=== PATIENT | male | born 1935 | race Caucasian/White ===

== ENCOUNTER 2018-01-21 11:40 | Day surgery (SDC) | payer OTHER ==
[~2018-01-21] VITALS: Ht 177.8 cm; Wt 81.7 kg
[~2018-01-21 11:40] MED LIST: ASPI81CH PO; BP MEDICATION; DIURETIC; GLIM4 PO; HYDACE7.5 PO; HYDCHL25 PO; Hair, Skin & N1 EACH PO; IBUP800 PO; LISI20 PO; META800 PO; METF500 PO; METF500C PO; OXYACE5T PO; PRED20 PO; SIMV10 PO; TRADJENTA5 MG PO; VITAMIN B122500 MC1 PO; [UNRECOGNIZED DRUG - OTHER]
[2018-01-21] MEDS ORDERED: HYDR1TAB94 PO (17:04)
== END 2018-01-21 18:32 | disposition home or self-care (01) ==
LOC: ORSCMMR 11:40 → SURS 11:43 → ORSCMMR 18:32
PROVIDERS: Surgery
PROC: 0YUA4JZ Supplement Bilateral Inguinal Region with Synthetic Substitute, Percutaneous Endoscopic Approach (ICD-10-PCS; principal; 2018-01-21 07:30)
PROC: 8E0W4CZ Robotic Assisted Procedure of Trunk Region, Percutaneous Endoscopic Approach (ICD-10-PCS; principal; 2018-01-21 07:30)
DX: K40.20 Bilateral inguinal hernia, without obstruction or gangrene, not specified as recurrent (principal); J44.9 Chronic obstructive pulmonary disease, unspecified; G47.33 Obstructive sleep apnea (adult) (pediatric); I12.9 Hypertensive chronic kidney disease with stage 1 through stage 4 chronic kidney disease, or unspecified chronic kidney disease; E11.22 Type 2 diabetes mellitus with diabetic chronic kidney disease; N18.9 Chronic kidney disease, unspecified; Z87.891 Personal history of nicotine dependence; Z79.84 Long term (current) use of oral hypoglycemic drugs; Z79.82 Long term (current) use of aspirin; Z79.899 Other long term (current) drug therapy
CPT/HCPCS: 82947; C1781; J0690; J2250; J2370; J2405; J2710; J2765; J3010; J7120

== ENCOUNTER 2018-10-25 06:44 | Day surgery (SDC) | payer OTHER ==
[~2018-10-25] VITALS: Ht 177.8 cm; Wt 77.0 kg
[~2018-10-25 06:44] MED LIST changes: +AMLO5 PO; +FISH OIL 1,001000 MG PO; +HYDR1TAB94 PO; +LIVALO2 MG PO; +REPA1 PO
[2018-10-25] MEDS ORDERED: CLOP75 PO (12:48)
[2018-10-25] MEDS ORDERED: Aspirin EC81 MG PO (12:48)
== END 2018-10-25 15:00 | disposition home or self-care (01) ==
LOC: MHTC 06:44
DX: E11.51 Type 2 diabetes mellitus with diabetic peripheral angiopathy without gangrene (principal); I70.212 Atherosclerosis of native arteries of extremities with intermittent claudication, left leg; I77.1 Stricture of artery
CPT/HCPCS: 36200; 37220; 37226; 37229; 75625; 75710; 75716; 75774; 76937; 82947; 85347; 99152; 99153; C1724; C1725; C1769; C1874; C1887; C1894; C2623; J1644; J2250; J3010; J7030; Q9967

== ENCOUNTER 2018-12-01 09:55 | Day surgery (SDC) | payer OTHER ==
[~2018-12-01] VITALS: Ht 182.9 cm; Wt 80.0 kg
[~2018-12-01 09:55] MED LIST changes: +Aspirin EC81 MG PO; +CLOP75 PO
[2018-12-01 10:56] LABS: BASOPHILS ABSOLUTE AUTO 0.08 K/mm3 (0.00-0.23); BASOPHILS PERCENT AUTO 1 % (0-2); EOSINOPHILS PERCENT AUTO 4 % (0-6); Hematocrit 39.8 % (37.0-53.0); Hemoglobin 13.2 g/dL (13.5-17.5); IMMATURE GRAN ABSOLUTE AUTO 0.04 K/mm3 (0.00-0.10); IMMATURE GRAN PERCENT AUTO 0 % (0-1); LYMPHOCYTES ABSOLUTE AUTO 3.26 K/mm3 (0.84-5.20); LYMPHOCYTES PERCENT AUTO 32 % (21-46); MONOCYTES PERCENT AUTO 6 % (4-13); Mean Corpuscular HGB 29.7 pg (26.0-34.0); Mean Corpuscular HGB Conc 33.2 g/dL (31.5-36.5); Mean Corpuscular Volume 90 fL (80-100); Mean Platelet Volume 8.7 fL (9.1-12.4); NEUTROPHILS PERCENT AUTO 57 % (41-73); Platelet Count 241 K/mm3 (150-400); RDW Standard Deviation 42.8 fL (35.1-46.3); Red Blood Cell Count 4.44 M/mm3 (4.30-5.90); White Blood Cell Count 10.28 K/mm3 (4.00-11.30)
[2018-12-01 11:17] LABS: Anion Gap 6 mmol/L (6-16); Blood Urea Nitrogen 41 mg/dL (8-24); CO2, Blood 26 mmol/L (21-32); Calcium, Blood 9.1 mg/dL (8.5-10.1); Chloride, Blood 106 mmol/L (98-108); Creatinine, Blood 1.17 mg/dL (0.60-1.20); Glomerular Filtration Rate >60 (60-); Glucose, Blood 168 mg/dL (70-99); Potassium, Blood 4.1 mmol/L (3.5-5.5); Sodium, Blood 138 mmol/L (136-145)
[2018-12-01 11:22] LABS: International Normalized Ratio 0.97; Prothrombin Time Results 10.3 Sec (9.7-11.5)
--- NOTE | 2018-12-01 15:00 | NUR ---
PT EATING LUNCH, WITHOUT DIFF. NADN. VSS. L GROIN SITE REMAINS CLEAR. CALL LIGHT WITHIN REACH. FAMILY AT BEDSIDE
--- NOTE | 2018-12-01 16:09 | NUR ---
PT AND FAMILY VERBALIZES UNDERSTANDING WRITTEN AND VERBAL ORDERS. DENIES QUESTIONS. PT IV DC'D. CATH INTACT. PRESSURE DSG APPLIED. PT L GROIN SITE REMAINS STABLE. VSS. NADN. PT SITTING UP IN BED WITHOUT DIFF. CALL LIGHT WITHIN REACH.
--- NOTE | 2018-12-01 16:19 | NUR ---
PT AMBULATES TO RESTROOM AND BACK. PT DRESSES SELF WITH MINIMAL ASSISTANCE. ALEJANDRA. VSS. PT DC TO HOME VIA S/O BY SHEELA.
== END 2018-12-01 16:30 | disposition home or self-care (01) ==
LOC: MHTC 09:55 → ORSCMMR 10:00 → MHTC 16:30
PROVIDERS: Radiology Diagnostic Radiology
DX: E11.51 Type 2 diabetes mellitus with diabetic peripheral angiopathy without gangrene (principal); I70.202 Unspecified atherosclerosis of native arteries of extremities, left leg; I12.9 Hypertensive chronic kidney disease with stage 1 through stage 4 chronic kidney disease, or unspecified chronic kidney disease; E11.22 Type 2 diabetes mellitus with diabetic chronic kidney disease; N18.9 Chronic kidney disease, unspecified; E11.42 Type 2 diabetes mellitus with diabetic polyneuropathy; F41.9 Anxiety disorder, unspecified; F32.9 Major depressive disorder, single episode, unspecified; E78.5 Hyperlipidemia, unspecified; Z88.8 Allergy status to other drugs, medicaments and biological substances; Z79.899 Other long term (current) drug therapy; Z79.84 Long term (current) use of oral hypoglycemic drugs
CPT/HCPCS: 37225; 75625; 80048; 85025; 85610; 99152; 99153; C1714; C1760; C1769; C1884; C1887; C1894; C2623; J1644; J2250; J3010; J7030; Q9967

== ENCOUNTER 2020-05-13 09:58 | Inpatient (IN) | payer OTHER ==
[~2020-05-13] VITALS: Ht 177.8 cm; Wt 80.4 kg
[~2020-05-13 09:58] MED LIST changes: +AMLODIPINE BESYL5 MG PO; +B-121000 MCG PO; +DOCU100 PO; +METAMUCIL PACK3.4 GM PO; +METFORMIN HCL500 M3 PO; +PANTOPRAZOLE SO40 M2 PO; +POLYETHYLENE G500 G1 PO; +SENN187 PO; -VITAMIN B122500 MC1 PO; +XARELTO2.5 M1 PO
[2020-05-13 10:47] LABS: BASOPHILS ABSOLUTE AUTO 0.07 K/mm3 (0.00-0.23); BASOPHILS PERCENT AUTO 0 % (0-2); EOSINOPHILS PERCENT AUTO 0 % (0-6); Hematocrit 39.4 % (37.0-53.0); IMMATURE GRAN ABSOLUTE AUTO 0.33 K/mm3 (0.00-0.10); IMMATURE GRAN PERCENT AUTO 1 % (0-1); LYMPHOCYTES ABSOLUTE AUTO 1.75 K/mm3 (0.84-5.20); LYMPHOCYTES PERCENT AUTO 6 % (21-46); MONOCYTES ABSOLUTE AUTO 1.65 K/mm3 (0.16-1.47); MONOCYTES PERCENT AUTO 6 % (4-13); Mean Corpuscular HGB 28.6 pg (26.0-34.0); Mean Corpuscular Volume 87 fL (80-100); Mean Platelet Volume 9.5 fL (9.1-12.4); NEUTROPHILS ABSOLUTE AUTO 25.12 K/mm3 (1.96-9.15); NEUTROPHILS PERCENT AUTO 87 % (41-73); Platelet Count 253 K/mm3 (150-400); RDW Coefficient Variation 14.5 % (11.7-14.2); RDW Standard Deviation 45.9 fL (35.1-46.3); Red Blood Cell Count 4.54 M/mm3 (4.30-5.90); White Blood Cell Count 28.92 K/mm3 (4.00-11.30)
[2020-05-13 11:02] LABS: Alanine Aminotransfer (ALT/SGP 20 U/L (12-78); Albumin, Blood 3.4 g/dL (3.4-5.0); Albumin/Globulin Ratio 0.7 (0.8-1.8); Alk Phos 61 U/L (50-136); Anion Gap 8 mmol/L (6-16); Aspartate Aminotrans (AST/SGOT 26 U/L (12-37); Bilirubin, Total 1.2 mg/dL (0.1-1.0); Blood Urea Nitrogen 21 mg/dL (8-24); Bun/Creatinine Ratio 21.9 (12.0-20.0); CO2, Blood 25 mmol/L (21-32); Chloride, Blood 97 mmol/L (98-108); Creatinine, Blood 0.96 mg/dL (0.60-1.20); Globulin, Blood 4.8 g/dL (2.2-4.0); Glomerular Filtration Rate >60 (60-); Glucose, Blood 312 mg/dL (70-99); Potassium, Blood 3.8 mmol/L (3.5-5.5); Sodium, Blood 130 mmol/L (136-145); Total Protein, Blood 8.2 g/dL (6.4-8.2)
[2020-05-13 11:08] LABS: International Normalized Ratio 1.1; Prothrombin Time Results 11.7 Sec (9.7-11.5)
[2020-05-13 11:58] LABS: Source, Urine Clean Catch
[2020-05-13 12:02] LABS: Bilirubin, Urine Neg (Neg); Blood, Urine 4+ (Neg); Glucose Qualitative, Urine 4+ (Neg); Ketones, Urine 1+ (Neg); Leukocyte Esterase, Urine 2+ (Neg); Nitrite, Urine Neg (Neg); Protein, Urine 3+ (Neg); Urobilinogen, Urine NORM (Normal)
[2020-05-13 12:14] LABS: Appearance, Urine Hazy (Clear); Color, Urine Yellow (P-Yellow)
[2020-05-13 12:15] LABS: White Blood Cells, Urine 25-50 /hpf (0-5)
[2020-05-13 12:16] LABS: Bacteria Many /hpf; Squamous Epithelial Cells Not Seen /hpf (Few)
[2020-05-13 13:43] LABS: Influenza A, PCR Negative (NEGATIVE); Influenza B, PCR Negative (NEGATIVE); Resp Syncytial Virus, PCR Negative (NEGATIVE); SARS-Cov-2 (COVID-19) PCR, MMC Negative (NEGATIVE)
[2020-05-13] MEDS ORDERED: DOCU100 PO (15:15)
--- NOTE | 2020-05-13 19:25 | NUR ---
SHIFT SUMMARY: ASSUMED CARE OF PATIENT UPON HIS ARRIVAL FROM ED AT 1725. WAS SHIVERING WITH RIGORS, TEMP 100.4; TYLENOL GIVEN AND RIGORS RESOLVED. DENIED PAIN, BUT STATED HE JUST FEELS LOUSY OVERALL. GRANDSON WILL STAY AT BEDSIDE TONIGHT PATIENT REQUIRES ASSISTANCE WITH CARE.
--- NOTE | 2020-05-14 04:53 | NUR ---
SHIFT SUMMARY ADMITTED FOR UTI/SEPSIS. DNI CODE. PT HAS URINATED THIS SHIFT. HE DRANK VERY LITTLE. 5 UNITS OF HUMULIN WERE REQUIRED. GLUCOSE WAS 224, MEDIUM SS. PT IS VERY WEAK AND DID NOT AMBULATE THIS SHIFT. HX: FALLS. HE HAD A FEVER ON PREVIOUS SHIFT, MEDICATED WITH TYLENOL.
[2020-05-14 05:05] LABS: BASOPHILS ABSOLUTE AUTO 0.06 K/mm3 (0.00-0.23); BASOPHILS PERCENT AUTO 0 % (0-2); EOSINOPHILS ABSOLUTE AUTO 0.04 K/mm3 (0.00-0.68); EOSINOPHILS PERCENT AUTO 0 % (0-6); Hematocrit 34.1 % (37.0-53.0); Hemoglobin 11.2 g/dL (13.5-17.5); IMMATURE GRAN ABSOLUTE AUTO 0.24 K/mm3 (0.00-0.10); IMMATURE GRAN PERCENT AUTO 1 % (0-1); LYMPHOCYTES ABSOLUTE AUTO 1.51 K/mm3 (0.84-5.20); LYMPHOCYTES PERCENT AUTO 7 % (21-46); MONOCYTES ABSOLUTE AUTO 1.35 K/mm3 (0.16-1.47); MONOCYTES PERCENT AUTO 6 % (4-13); Mean Corpuscular HGB 28.6 pg (26.0-34.0); Mean Corpuscular HGB Conc 32.8 g/dL (31.5-36.5); Mean Corpuscular Volume 87 fL (80-100); Mean Platelet Volume 9.7 fL (9.1-12.4); NEUTROPHILS ABSOLUTE AUTO 19.68 K/mm3 (1.96-9.15); NEUTROPHILS PERCENT AUTO 86 % (41-73); Platelet Count 184 K/mm3 (150-400); RDW Coefficient Variation 14.6 % (11.7-14.2); RDW Standard Deviation 46.7 fL (35.1-46.3); Red Blood Cell Count 3.92 M/mm3 (4.30-5.90); White Blood Cell Count 22.88 K/mm3 (4.00-11.30)
[2020-05-14 05:44] LABS: Anion Gap 6 mmol/L (6-16); Blood Urea Nitrogen 18 mg/dL (8-24); Bun/Creatinine Ratio 20.3 (12.0-20.0); CO2, Blood 26 mmol/L (21-32); Calcium, Blood 8.2 mg/dL (8.5-10.1); Chloride, Blood 103 mmol/L (98-108); Creatinine, Blood 0.89 mg/dL (0.60-1.20); Glomerular Filtration Rate >60 (60-); Glucose, Blood 143 mg/dL (70-99); Potassium, Blood 3.6 mmol/L (3.5-5.5); Sodium, Blood 135 mmol/L (136-145)
--- NOTE | 2020-05-14 18:42 | NUR ---
SHIFT SUMMARY: T MAX 102.3; TYLENOL GIVEN. MENTATION HAS IMPROVED FROM YESTERDAY, BUT FATIGUES EASILY. STILL HAVING URINARY FREQUENCY, VOIDS ~50-100 EACH VOID. VOIDING OFTEN ENOUGH THAT BLADDER SCAN HAS NOT BEEN REQUIRED. GOT UP TO CHAIR X 1 TODAY. APPETITE GOOD FOR BREAKFAST AND LUNCH, BUT DID NOT EAT MUCH DINNER. AND GRANDSON AT BEDSIDE IN SHIFTS, ARE CAREIVERS.
[2020-05-15 05:46] LABS: BASOPHILS ABSOLUTE AUTO 0.03 K/mm3 (0.00-0.23); BASOPHILS PERCENT AUTO 0 % (0-2); EOSINOPHILS ABSOLUTE AUTO 0.02 K/mm3 (0.00-0.68); EOSINOPHILS PERCENT AUTO 0 % (0-6); Hematocrit 32.2 % (37.0-53.0); Hemoglobin 10.9 g/dL (13.5-17.5); IMMATURE GRAN ABSOLUTE AUTO 0.06 K/mm3 (0.00-0.10); IMMATURE GRAN PERCENT AUTO 1 % (0-1); LYMPHOCYTES ABSOLUTE AUTO 0.64 K/mm3 (0.84-5.20); LYMPHOCYTES PERCENT AUTO 6 % (21-46); MONOCYTES ABSOLUTE AUTO 0.65 K/mm3 (0.16-1.47); MONOCYTES PERCENT AUTO 6 % (4-13); Mean Corpuscular HGB 29.1 pg (26.0-34.0); Mean Corpuscular HGB Conc 33.9 g/dL (31.5-36.5); Mean Corpuscular Volume 86 fL (80-100); NEUTROPHILS ABSOLUTE AUTO 9.93 K/mm3 (1.96-9.15); NEUTROPHILS PERCENT AUTO 88 % (41-73); Platelet Count 172 K/mm3 (150-400); RDW Coefficient Variation 14.4 % (11.7-14.2); RDW Standard Deviation 45.1 fL (35.1-46.3); Red Blood Cell Count 3.74 M/mm3 (4.30-5.90); White Blood Cell Count 11.33 K/mm3 (4.00-11.30)
--- NOTE | 2020-05-15 05:59 | NUR ---
SHIFT SUMMARY ADMITTED FOR SEPSIS SECONDARY TO UTI. DNI CODE. PT AMBULATED, 1 ASSIST W/FWW TO BATHROOM PT IS A&O X4. PT IS HOPEFUL TO DC W/FAMILY WHO WILL CARE FOR HIM. TAMSULOSIN BEGAN THIS SHIFT TO ASSIST W/RETENTION. PLAN IS FOR OUTPT UROLOGY FOLLOW UP, PSA RECOMMENDED. NO NEW CONCERNS THIS SHIFT
[2020-05-15 06:11] LABS: Anion Gap 7 mmol/L (6-16); Blood Urea Nitrogen 18 mg/dL (8-24); Bun/Creatinine Ratio 22.1 (12.0-20.0); CO2, Blood 23 mmol/L (21-32); Calcium, Blood 7.9 mg/dL (8.5-10.1); Chloride, Blood 102 mmol/L (98-108); Creatinine, Blood 0.82 mg/dL (0.60-1.20); Glomerular Filtration Rate >60 (60-); Glucose, Blood 212 mg/dL (70-99); Potassium, Blood 3.8 mmol/L (3.5-5.5); Sodium, Blood 132 mmol/L (136-145)
[2020-05-15] MEDS ORDERED: CEFP200 PO (16:51)
[2020-05-15] MEDS ORDERED: TAMS.4ER PO (16:51)
--- NOTE | 2020-05-15 16:52 | NUR ---
DISCHARGE @ ONSET OF SHIFT PT A/O X3-4, HE STATE "NORMAL" ACHES & PAINS, STATE FEELING IMPROVED, HOPEFUL TO GO HOME. GRANDSON @ BEDSIDE STATE HE APPEARS BETTER, READY TO GO HOME. DR SHEIKH IN TO SEE THEM STATE POSSIBLE D/C HOME AFTER IV ROCEPHIN @ 1200. PT'S CAME IN, STATE CONCERNS R/T D/C, REQUEST TO SPEAK w ABLE TO CONNECT HER w DR SHEIKH VIA PHONE, QUESTIONS/CONCERNS ADDRESSED. THEY STATE READY FOR HOME. RIPON PATIENT ACCOUNTING REPRESENTATIVE NOTIFY , PLACE ORDERS FOR D/C. IV D/C INTACT. SCRIPTS TO [facility]/REQUEST. IV D/C INTACT. D/C INSTRUCT REVIEWED. W/C [facility] PROVIDED. THEY ARE PLEASANT/APPRECIATIVE.
== END 2020-05-15 17:21 | disposition home or self-care (01) | DRG 871 ==
LOC: ER 09:58 → MEDS 09:59
PROVIDERS: Family Medicine; Physician Assistant; ADMIT Family Medicine
DX: A41.51 Sepsis due to Escherichia coli [E. coli] (principal); G93.41 Metabolic encephalopathy; N39.0 Urinary tract infection, site not specified; I10 Essential (primary) hypertension; E11.43 Type 2 diabetes mellitus with diabetic autonomic (poly)neuropathy; Z66 Do not resuscitate; Z91.81 History of falling; N40.1 Benign prostatic hyperplasia with lower urinary tract symptoms; Z20.828 Contact with and (suspected) exposure to other viral communicable diseases; I12.9 Hypertensive chronic kidney disease with stage 1 through stage 4 chronic kidney disease, or unspecified chronic kidney disease; E11.22 Type 2 diabetes mellitus with diabetic chronic kidney disease; N18.9 Chronic kidney disease, unspecified; E78.5 Hyperlipidemia, unspecified; F32.9 Major depressive disorder, single episode, unspecified; F41.9 Anxiety disorder, unspecified; H54.61 Unqualified visual loss, right eye, normal vision left eye; Z87.891 Personal history of nicotine dependence; R33.9 Retention of urine, unspecified
CPT/HCPCS: 0241U; 36415; 51701; 80048; 80053; 81001; 82947; 83605; 85025; 85610; 87040; 87077; 87086; 87186; 93005; 93010; 96361-59; 96365-59; 96366; 97110; 97116; 97162; 97166; 97530; 99285-25; A9270; G0378; J0696; J1815; J3480; J7030

== ENCOUNTER 2020-05-29 16:20 | Inpatient (IN) | payer OTHER ==
[~2020-05-29] VITALS: Ht 177.8 cm; Wt 80.6 kg
[~2020-05-29 16:20] MED LIST changes: -AMLODIPINE BESYL5 MG PO; -Aspirin EC81 MG PO; -B-121000 MCG PO; +CEFP200 PO; -HYDCHL25 PO; -LISI20 PO; -LIVALO2 MG PO; -METFORMIN HCL500 M3 PO; -POLYETHYLENE G500 G1 PO; -REPA1 PO; -SENN187 PO; -TRADJENTA5 MG PO; -XARELTO2.5 M1 PO
[2020-05-29 16:41] LABS: BASOPHILS ABSOLUTE AUTO 0.05 K/mm3 (0.00-0.23); BASOPHILS PERCENT AUTO 0 % (0-2); EOSINOPHILS ABSOLUTE AUTO 0.02 K/mm3 (0.00-0.68); EOSINOPHILS PERCENT AUTO 0 % (0-6); Hematocrit 20.8 % (37.0-53.0); Hemoglobin 6.4 g/dL (13.5-17.5); IMMATURE GRAN ABSOLUTE AUTO 0.14 K/mm3 (0.00-0.10); IMMATURE GRAN PERCENT AUTO 1 % (0-1); LYMPHOCYTES ABSOLUTE AUTO 1.42 K/mm3 (0.84-5.20); LYMPHOCYTES PERCENT AUTO 8 % (21-46); MONOCYTES ABSOLUTE AUTO 1.17 K/mm3 (0.16-1.47); MONOCYTES PERCENT AUTO 6 % (4-13); Mean Corpuscular HGB 29.4 pg (26.0-34.0); Mean Corpuscular HGB Conc 30.8 g/dL (31.5-36.5); Mean Corpuscular Volume 95 fL (80-100); Mean Platelet Volume 9.2 fL (9.1-12.4); NEUTROPHILS ABSOLUTE AUTO 16.24 K/mm3 (1.96-9.15); NEUTROPHILS PERCENT AUTO 85 % (41-73); Platelet Count 396 K/mm3 (150-400); RDW Coefficient Variation 17.1 % (11.7-14.2); RDW Standard Deviation 59.2 fL (35.1-46.3); Red Blood Cell Count 2.18 M/mm3 (4.30-5.90); White Blood Cell Count 19.04 K/mm3 (4.00-11.30)
[2020-05-29 17:05] LABS: Alanine Aminotransfer (ALT/SGP 52 U/L (12-78); Albumin/Globulin Ratio 0.9 (0.8-1.8); Alk Phos 61 U/L (50-136); Anion Gap 15 mmol/L (6-16); Aspartate Aminotrans (AST/SGOT 53 U/L (12-37); Bilirubin, Total 0.4 mg/dL (0.1-1.0); Blood Urea Nitrogen 36 mg/dL (8-24); Bun/Creatinine Ratio 40.3 (12.0-20.0); CO2, Blood 17 mmol/L (21-32); Calcium, Blood 8.2 mg/dL (8.5-10.1); Chloride, Blood 97 mmol/L (98-108); Creatinine, Blood 0.89 mg/dL (0.60-1.20); Globulin, Blood 3.4 g/dL (2.2-4.0); Glomerular Filtration Rate >60 (60-); Glucose, Blood 342 mg/dL (70-99); Potassium, Blood 4.3 mmol/L (3.5-5.5); Sodium, Blood 129 mmol/L (136-145); Total Protein, Blood 6.4 g/dL (6.4-8.2)
[2020-05-29] MEDS ORDERED: AMLODIPINE BES2.5 MG PO (18:17)
[2020-05-29 18:18] LABS: International Normalized Ratio 1.02; Prothrombin Time Results 10.9 Sec (9.7-11.5)
[2020-05-29] MEDS ORDERED: PRINIVIL10 MG PO (18:18)
[2020-05-29] MEDS ORDERED: HYDCHL25 PO (18:19)
[2020-05-29] MEDS ORDERED: LIVALO2 MG PO ×2 (18:19→21:28)
[2020-05-29] MEDS ORDERED: TAMS.4ER PO (18:19)
[2020-05-29] MEDS ORDERED: REPA1 PO (18:20)
[2020-05-29] MEDS ORDERED: TRADJENTA5 MG PO (18:21)
[2020-05-29] MEDS ORDERED: METFORMIN HCL500 M3 PO (18:21)
[2020-05-29] MEDS ORDERED: Vitamin B-121000 MCG PO (18:23)
[2020-05-29] MEDS ORDERED: Hair, Skin & N1 EACH PO (18:23)
[2020-05-29] MEDS ORDERED: XARELTO2.5 M1 PO (18:24)
[2020-05-29] MEDS ORDERED: Aspirin EC81 MG PO (18:24)
[2020-05-29] MEDS ORDERED: SENN187 PO (18:26)
[2020-05-29] MEDS ORDERED: DOCU100 PO (18:26)
[2020-05-29] MEDS ORDERED: POLYETHYLENE G500 G1 PO (18:26)
[2020-05-29 20:08] LABS: Source, Urine Clean Catch
[2020-05-29 20:13] LABS: Bilirubin, Urine Neg (Neg); Blood, Urine 1+ (Neg); Glucose Qualitative, Urine 4+ (Neg); Ketones, Urine 1+ (Neg); Leukocyte Esterase, Urine 2+ (Neg); Nitrite, Urine Pos (Neg); Protein, Urine 1+ (Neg); Urobilinogen, Urine NORM (Normal)
[2020-05-29 20:20] LABS: Appearance, Urine Hazy (Clear); Color, Urine Yellow (P-Yellow)
[2020-05-29 20:21] LABS: Bacteria Many /hpf; Red Blood Cells, Urine 0-2 /hpf (0-2); Squamous Epithelial Cells Not Seen /hpf (Few); White Blood Cells, Urine 50-100 /hpf (0-5)
[2020-05-29 20:59] LABS: Hematocrit 23.5 % (37.0-53.0); Hemoglobin 7.4 g/dL (13.5-17.5)
[2020-05-29 21:17] LABS: Alanine Aminotransfer (ALT/SGP 104 U/L (12-78); Albumin/Globulin Ratio 0.9 (0.8-1.8); Alk Phos 62 U/L (50-136); Anion Gap 14 mmol/L (6-16); Aspartate Aminotrans (AST/SGOT 94 U/L (12-37); Blood Urea Nitrogen 34 mg/dL (8-24); Bun/Creatinine Ratio 41.6 (12.0-20.0); CO2, Blood 16 mmol/L (21-32); Calcium, Blood 7.9 mg/dL (8.5-10.1); Chloride, Blood 98 mmol/L (98-108); Creatinine, Blood 0.82 mg/dL (0.60-1.20); Globulin, Blood 3.5 g/dL (2.2-4.0); Glomerular Filtration Rate >60 (60-); Glucose, Blood 374 mg/dL (70-99); Potassium, Blood 5.4 mmol/L (3.5-5.5); Sodium, Blood 128 mmol/L (136-145); Total Protein, Blood 6.5 g/dL (6.4-8.2)
--- NOTE | 2020-05-29 22:30 | NUR ---
PT TO ICU 13 VIA [facility] WITH ED RN AND MATHEMATICS PROFESSOR @ 4292. PT ALERT AND ORIENTED, CALM, COOPERATIVE AND PLEASANT WITH STAFF. O2 SATURATIONS> 90% ON 2L PER NC. MONITOR SHOWS SINUS RHYTHM WITH HR 90'S-105, LEVO GTT INF PER RFA IV @ 15mcg TO MAINTAIN MAPS> 65. 1 UNIT PRBC INFUSING @ 200ml/hr, CRACKLES NOTED TO BASES OF LUNGS, RATE DECREASED TO 150ml/hr. SKIN OVERALL IN TACT. PT DENIES GI ISSUES, STS HAS NOT NOTICED ANY BLEEDING WITH STOOL. PT VOIDING PER URINAL WITH ASSISTANCE. PT MATHIS, REPOSITIONS SELF INDEPENDENTLY, SOME WHAT RESTLESS IN BED. DR GARCIA TO ROOM @ 2230, UPDATED ON PRESSOR NEEDS AND LUNG SOUNDS. DR GARCIA TO CONSULT CARDIOLOGY, ORDERS TO FOLLOW.
[2020-05-29 23:01] LABS: Hematocrit 24.9 % (37.0-53.0)
[2020-05-29 23:25] LABS: Influenza A, PCR Negative (NEGATIVE); Influenza B, PCR Negative (NEGATIVE); Resp Syncytial Virus, PCR Negative (NEGATIVE); SARS-Cov-2 (COVID-19) PCR, MMC Negative (NEGATIVE)
--- NOTE | 2020-05-30 02:30 | NUR ---
DR ELIZABETH TO ROOM TO EVALUATE PT, CENTRAL LINE PLACED, PT TOLERATED WELL. NOTIFIED DR ELIZABETH OF [facility], NEW ORDER FOR 20u LONG ACTING INSULIN.
[2020-05-30 05:33] LABS: BASOPHILS ABSOLUTE AUTO 0.04 K/mm3 (0.00-0.23); BASOPHILS PERCENT AUTO 0 % (0-2); EOSINOPHILS PERCENT AUTO 0 % (0-6); Hematocrit 27.5 % (37.0-53.0); Hemoglobin 9.2 g/dL (13.5-17.5); IMMATURE GRAN ABSOLUTE AUTO 0.17 K/mm3 (0.00-0.10); IMMATURE GRAN PERCENT AUTO 1 % (0-1); LYMPHOCYTES ABSOLUTE AUTO 1.26 K/mm3 (0.84-5.20); LYMPHOCYTES PERCENT AUTO 7 % (21-46); MONOCYTES ABSOLUTE AUTO 1.59 K/mm3 (0.16-1.47); MONOCYTES PERCENT AUTO 9 % (4-13); Mean Corpuscular HGB 30.4 pg (26.0-34.0); Mean Corpuscular HGB Conc 33.5 g/dL (31.5-36.5); Mean Corpuscular Volume 91 fL (80-100); Mean Platelet Volume 9.3 fL (9.1-12.4); NEUTROPHILS ABSOLUTE AUTO 15.31 K/mm3 (1.96-9.15); NEUTROPHILS PERCENT AUTO 83 % (41-73); Platelet Count 404 K/mm3 (150-400); RDW Coefficient Variation 16.2 % (11.7-14.2); RDW Standard Deviation 52.7 fL (35.1-46.3); Red Blood Cell Count 3.03 M/mm3 (4.30-5.90); White Blood Cell Count 18.37 K/mm3 (4.00-11.30)
[2020-05-30 06:12] LABS: Anion Gap 9 mmol/L (6-16); Blood Urea Nitrogen 32 mg/dL (8-24); Bun/Creatinine Ratio 38.3 (12.0-20.0); CO2, Blood 20 mmol/L (21-32); Calcium, Blood 7.6 mg/dL (8.5-10.1); Chloride, Blood 101 mmol/L (98-108); Creatinine, Blood 0.84 mg/dL (0.60-1.20); Glomerular Filtration Rate >60 (60-); Glucose, Blood 333 mg/dL (70-99); Potassium, Blood 4.5 mmol/L (3.5-5.5); Sodium, Blood 130 mmol/L (136-145)
--- NOTE | 2020-05-30 06:30 | NUR ---
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 OXYGEN NEEDS INCREASED THIS SHIFT, PT ON 6L PER NC TO MAINTAIN O2> 90%. MONITOR SHOWS SINUS RHYTHM WITH HR 90'S-105, LEVO GTT INFUSING TO MAINTAIN MAPS> 65. PT VOIDING IN URINAL WITH ASSISTANCE FROM WHO IS PTS PRIMARY VETERINARY ATTENDANT AND REMAINS AT BEDSIDE. NO BM THIS SHIFT, NO SIGNS OF BLEEDING, ABD SOFT AND NON TENDER. AM LABS SHOWED TROPONIN TRENDING UP, RESULT OF 5.56, NOTIFIED DR ELIZABETH. NO NEW ORDERS AT THIS TIME.
--- NOTE | 2020-05-30 06:40 | NUR ---
DR ELIZABETH IN TO SEE PT. NO NEW ORDERS.
--- NOTE | 2020-05-30 07:15 | NUR ---
[place] of Care: Patient alert and oriented x4, lying in bed with at bedside. Denies chest pain/discomfort or SOB while at rest. Mild SOB with exertion, but quickly recovers with rest. SpO2-90-94% on 6L/NC. VSS, levophed gtt infusing at 7mcg/min, plan to titrated down and off as indicated, MAP's in 70's at this time. No s/s of active GI bleeding, q4hr H+H scheduled. Central line to rt IJ patent and intact. Peripheral IV's x3 patent and intact. Dr. Alfonso to room to see patient. Stated plan to consult with Dr. Wright r/t transferring patient to another facility as no GI physician available at this time. Dr. Alfonso expressed concern for taking patient to labor relations specialist r/t possible GI bleeding and anemia. Call light in reach, makes needs known. Will continue to monitor.
--- NOTE | 2020-05-30 07:20 | NUR ---
Patient gave permission to give care 05/30/20
[2020-05-30 10:08] LABS: Hematocrit 26.5 % (37.0-53.0); Hemoglobin 8.8 g/dL (13.5-17.5)
--- NOTE | 2020-05-30 12:03 | NUR ---
Echocardiogram using 0.50ml of Definity contrast performed.
[2020-05-30 13:52] LABS: Hemoglobin 8.9 g/dL (13.5-17.5)
--- NOTE | 2020-05-30 15:44 | NUR ---
ADMIT: 05/29/19 DISCHARGE: TRANSFER TO [place] DX: Cardiogenic shock CC: [email or web address] CESAR CALL: RESIDENCE: CAREGIVER: DX: HTN, PVD, DM, Renal failure syndrome, Type 2 DM, see list DME: DM supplies CCM: None HOME HEALTH: None SUMMARY: 05/30/20- Per chart review with Dr. Wright, he is working on having pt transfer to [facility]. He has had a conference call with panel of their doctors. Waiting for them to get back to him on availability. Per Dr. Wright's chart note, pt has been accepted to [facility] for transfer.-kjw 1. Gastrointestinal bleed, probably upper, unclear as to whether or not the patient is still on Plavix and a Xa inhibitor. It was not in his med list, but it has been documented in his most recent H and P in April. 2. Bilateral lower lobe pneumonia. 3. Acute metabolic acidosis with lactic acidemia, possibly the patient does meet criteria for severe sepsis, although there are other reasons why he may meet those criteria including hypoperfusion from anemia, acute myocardial infarction, and cardiogenic shock with hypotension and possibility that there is a contribution from the metformin that he takes. 4. Possible cardiogenic shock. Diagnosis of septic shock will be determined depending upon how he responds to his blood products. 5. Hyponatremia. 6. Hyperglycemia with type 2 diabetes, not controlled.
--- NOTE | 2020-05-30 16:05 | NUR ---
[facility] Transfer/Shift Summary: Patient remained stable throughout shift. VSS, levophed gtt decreased from 7mcg/min and turned off at approx 1000hr, MAP's remained 60's-70's. X1 BM this afternoon, medium/formed and dark/tarry, although repeat H+H values remained stable. Continued to deny chest pain until approx 1500 hr when complained of lower chest/epigastric pain 3/10, and dull. X1 dose of prn fentanyl 25mcg effective to completely resolve pain. Continued to have SOB with exertion, but also continued to resolve with rest. Patient encouraged to not exert himself and allow staff to assist with cares i.e. bed-terrazas, use of urinal. Received [facility] transfer order from Dr. Wright at approx 1430hr, with plan to transfer to [facility]. Received room #[id number] and [facility] contacted for ground transport. Report called to Anup at [facility]. Patient transferred via ground EMS, left facility at 1550hr. All belongings sent with patient's .
--- NOTE | 2020-05-30 17:14 | NUR ---
Per admit trigger, I was tasked to offer Mr. Ferrer information on ACP and prayer. He was interested in neither and was politely dismissive.
== END 2020-05-30 15:50 | disposition short-term general hospital (02) | DRG 291 ==
LOC: ER 16:20 → ICUW 21:08 → ERHOLD 21:08 → ICUW 21:13
PROVIDERS: Emergency Medicine; Internal Medicine; Pharmacist; Physician Assistant; ADMIT Internal Medicine
PROC: 30233N1 Transfusion of Nonautologous Red Blood Cells into Peripheral Vein, Percutaneous Approach (ICD-10-PCS; 2020-05-29)
PROC: 3E033XZ Introduction of Vasopressor into Peripheral Vein, Percutaneous Approach (ICD-10-PCS; 2020-05-29)
PROC: 02HV33Z Insertion of Infusion Device into Superior Vena Cava, Percutaneous Approach (ICD-10-PCS; principal; 2020-05-30)
DX: R57.0 Cardiogenic shock (principal); I50.21 Acute systolic (congestive) heart failure; K92.2 Gastrointestinal hemorrhage, unspecified; I13.0 Hypertensive heart and chronic kidney disease with heart failure and stage 1 through stage 4 chronic kidney disease, or unspecified chronic kidney disease; E87.2 Acidosis; E87.1 Hypo-osmolality and hyponatremia; Z20.822 Contact with and (suspected) exposure to COVID-19; R57.8 Other shock; D64.9 Anemia, unspecified; E11.65 Type 2 diabetes mellitus with hyperglycemia; D72.829 Elevated white blood cell count, unspecified; E11.42 Type 2 diabetes mellitus with diabetic polyneuropathy; R79.89 Other specified abnormal findings of blood chemistry; N18.9 Chronic kidney disease, unspecified; E11.22 Type 2 diabetes mellitus with diabetic chronic kidney disease; E78.5 Hyperlipidemia, unspecified; E11.51 Type 2 diabetes mellitus with diabetic peripheral angiopathy without gangrene; G25.81 Restless legs syndrome; F41.9 Anxiety disorder, unspecified; F32.9 Major depressive disorder, single episode, unspecified; I08.1 Rheumatic disorders of both mitral and tricuspid valves; Z95.820 Peripheral vascular angioplasty status with implants and grafts; Z88.4 Allergy status to anesthetic agent; Z79.899 Other long term (current) drug therapy; Z79.01 Long term (current) use of anticoagulants; Z79.84 Long term (current) use of oral hypoglycemic drugs; Z79.82 Long term (current) use of aspirin; Z87.891 Personal history of nicotine dependence
CPT/HCPCS: 0241U; 36415; 36430; 36556; 51798; 71045; 80048; 80053; 81001; 82947; 83605; 83690; 83880; 84145; 84484; 85014; 85018; 85025; 85610; 85730; 86850; 86900; 86901; 86923; 87040; 93005; 93010; 96361-59; 96365-59; 96368; 96376; 99285-25; A9270; C1751; C8929; C9113; J0456; J0696; J1940; J2405; J2765; J3010; J7030; J7050; J7060; P9016; Q9957

== ENCOUNTER 2022-10-26 11:26 | Inpatient (IN) | payer OTHER ==
[~2022-10-26] VITALS: Ht 177.8 cm; Wt 77.9 kg
[~2022-10-26 11:26] MED LIST changes: +AMLODIPINE BES2.5 MG PO; +Aspirin EC81 MG PO; +HYDCHL25 PO; +LISI10 PO; +LIVALO2 MG PO; +METFORMIN HCL500 M3 PO; +POLYETHYLENE G500 G1 PO; +REPAGLINIDE1 MG PO; +SENN187 PO; +TAMS.4ER PO; +TRADJENTA5 MG PO; +Vitamin B-121000 MCG PO; +XARELTO2.5 M1 PO
[2022-10-26 13:25] LABS: International Normalized Ratio 1.2; Prothrombin Time Results 12.5 Sec (9.7-11.5)
[2022-10-26] MEDS ORDERED: METOPROLOL TART25 MG PO (13:47)
[2022-10-26] MEDS ORDERED: HYDCHL25 PO (13:47)
[2022-10-26] MEDS ORDERED: PARO10 PO (14:48)
[2022-10-26] MEDS ORDERED: ATOR40TA PO (14:48)
[2022-10-26 16:09] VITALS: BP 122/73
[2022-10-26 19:29] VITALS: BP 129/78
--- NOTE | 2022-10-26 19:44 | NUR ---
SHIFT SUMMARY- PT WAS ADMITTED THROUGH THE ED FOR GI BLEED. PT IS VERY WEAK AND TIRED. PROTONIX DRIP IS CURRENTLY INFUSING. PT SPOUSE IS VERY INVOLVED IN HIS CARE. SHE IS AT THE BEDSIDE AND PLANS TO STAY THE NIGHT. THE PT SEEMS LIKE HE WILL DO BETTER WITH HER PRESENCE. SPOUSE DID TRY TO GET THE PT UP TO THE BSC, HEEL BREASTER SUGGESTED A BED PRIETO D/T PT WEAKNESS, HOWEVER THE SPOUSE INSISTED HE COULD USE THE COMODE, HEEL BREASTER EXPRESSED CONCERN FOR SAFETY, THE SPOUSE TRIED TO MOVE HIM ON HER OWN. PT HAD A GLF AT HOME RESULTING IN LARGE AMOUNT OF SWELLING AND BRUISING TO THE LEFT ARM. SPOUSE WAS EDUCATED ON THE NEED FOR SAFETY, BED ALARM SET FOR SAFETY. PASSED ON IN BEDSIDE REPORT TO NIGHT RN. PT IN BED CALL LIGHT IN REACH SPOUSE AT BEDSIDE AT THE TIME OF BEDSIDE REPORT, NO S&S OF DISTRESS.
[2022-10-26 20:18] LABS: Bun/Creatinine Ratio 41.4 (12.0-20.0); Calcium, Blood 7.9 mg/dL (8.5-10.1); Creatinine, Blood 0.87 mg/dL (0.60-1.20)
[2022-10-27 04:16] VITALS: BP 118/67
--- NOTE | 2022-10-27 05:12 | NUR ---
SHIFT SUMMARY PT HAS BEEN RESTING WELL THROUGHOUT THE NIGHT. PT HAS BEEN VOIDING VIA URINAL WITH HELP FROM HIS . PT ARM HAD US PERFORMED. PT ARM IS STILL UNCOMFORTABLE AND DISCOLORED. PT RESPONDED WELL TO TYLENOL. PROTONIX CONTINUES TO RUN ORDERED. NO NEW ISSUES HAVE BEEN NOTED. CALL LIGHT IN REACH AND BED ALARM ON.
[2022-10-27 05:14] LABS: BASOPHILS ABSOLUTE AUTO 0.02 K/mm3 (0.00-0.23); BASOPHILS PERCENT AUTO 0 % (0-2); EOSINOPHILS ABSOLUTE AUTO 0.07 K/mm3 (0.00-0.68); EOSINOPHILS PERCENT AUTO 1 % (0-6); Hemoglobin 8.1 g/dL (13.5-17.5); IMMATURE GRAN ABSOLUTE AUTO 0.02 K/mm3 (0.00-0.10); IMMATURE GRAN PERCENT AUTO 0 % (0-1); LYMPHOCYTES ABSOLUTE AUTO 0.95 K/mm3 (0.84-5.20); LYMPHOCYTES PERCENT AUTO 17 % (21-46); MONOCYTES ABSOLUTE AUTO 0.54 K/mm3 (0.16-1.47); MONOCYTES PERCENT AUTO 10 % (4-13); Mean Corpuscular HGB 29.8 pg (26.0-34.0); Mean Corpuscular HGB Conc 35.2 g/dL (31.5-36.5); Mean Corpuscular Volume 85 fL (80-100); Mean Platelet Volume 9.9 fL (9.1-12.4); NEUTROPHILS ABSOLUTE AUTO 3.93 K/mm3 (1.96-9.15); NEUTROPHILS PERCENT AUTO 71 % (41-73); Platelet Count 157 K/mm3 (150-400); RDW Coefficient Variation 14.9 % (11.7-14.2); Red Blood Cell Count 2.72 M/mm3 (4.30-5.90); White Blood Cell Count 5.53 K/mm3 (4.00-11.30)
[2022-10-27 06:14] LABS: Albumin/Globulin Ratio 0.9 (0.8-1.8); Bilirubin, Total 1.3 mg/dL (0.1-1.0); Bun/Creatinine Ratio 33.5 (12.0-20.0); Calcium, Blood 7.6 mg/dL (8.5-10.1); Creatinine, Blood 0.9 mg/dL (0.60-1.20); Globulin, Blood 3.3 g/dL (2.2-4.0); Magnesium, Blood 2.2 mg/dL (1.6-2.4); Potassium, Blood 3.6 mmol/L (3.5-5.5); Total Protein, Blood 6.3 g/dL (6.4-8.2)
[2022-10-27 07:15] VITALS: BP 118/71
[2022-10-27 15:26] VITALS: BP 113/74
--- NOTE | 2022-10-27 18:02 | NUR ---
SHIFT SUMMARY NO ACUTE CHANGES DURING SHIFT. PT ALERT AND ORIENTED, CALLS APPROPRIATELY. PT ON RA, X 1-2 ASSIST TO BEDSIDE COMMODE. PT ADVANCED TO FULL LIQUIDS. PROTONIX STILL INFUSING AT 10ML/HR. NO CHANGE TO L ARM, STILL SWOLLEN, BRUISED. DRESSING TO LFA STILL INTACT. WILL CONTINUE TO MONITOR. CALL LIGHT WITHIN REACH.
[2022-10-27 19:04] VITALS: BP 124/68
--- NOTE | 2022-10-28 04:19 | NUR ---
SHIFT SUMMARY PATIENT HAD NO ACUTE CHANGES. AXOX 4 AND TWO ASSIST W/FWW GB TO BSC. USES URINAL AT BEDSIDE. SPOUSE PRESENT T/O SHIFT AND HELPS WITH CARE. PIV REMAINS INTACT. IV PROTONIX INFUSING AT 10 mL/HR. DENIES CHEST PAIN, SOB, AND N/V. VSS/AFEBRILE. CALL LIGHT IN REACH. BED IN LOWEST POSITION. WILL CONTINUE TO MONITOR UNTIL DAY SHIFT NURSE ASSUMES CARE.
[2022-10-28 07:32] VITALS: BP 128/70
[2022-10-28 08:55] LABS: BASOPHILS ABSOLUTE AUTO 0.01 K/mm3 (0.00-0.23); BASOPHILS PERCENT AUTO 0 % (0-2); EOSINOPHILS ABSOLUTE AUTO 0.09 K/mm3 (0.00-0.68); EOSINOPHILS PERCENT AUTO 2 % (0-6); Hematocrit 24.4 % (37.0-53.0); Hemoglobin 8.5 g/dL (13.5-17.5); IMMATURE GRAN ABSOLUTE AUTO 0.01 K/mm3 (0.00-0.10); IMMATURE GRAN PERCENT AUTO 0 % (0-1); LYMPHOCYTES ABSOLUTE AUTO 0.87 K/mm3 (0.84-5.20); LYMPHOCYTES PERCENT AUTO 18 % (21-46); MONOCYTES PERCENT AUTO 10 % (4-13); Mean Corpuscular HGB 29.3 pg (26.0-34.0); Mean Corpuscular HGB Conc 34.8 g/dL (31.5-36.5); Mean Corpuscular Volume 84 fL (80-100); Mean Platelet Volume 10.1 fL (9.1-12.4); NEUTROPHILS ABSOLUTE AUTO 3.48 K/mm3 (1.96-9.15); NEUTROPHILS PERCENT AUTO 70 % (41-73); Platelet Count 165 K/mm3 (150-400); RDW Coefficient Variation 15.3 % (11.7-14.2); RDW Standard Deviation 46.1 fL (35.1-46.3); White Blood Cell Count 4.96 K/mm3 (4.00-11.30)
[2022-10-28 09:01] LABS: Bun/Creatinine Ratio 26.1 (12.0-20.0); Calcium, Blood 7.9 mg/dL (8.5-10.1); Creatinine, Blood 0.81 mg/dL (0.60-1.20); Potassium, Blood 3.6 mmol/L (3.5-5.5)
[2022-10-28 16:26] VITALS: BP 118/70
--- NOTE | 2022-10-28 17:02 | NUR ---
SHIFT SUMMARY- PT IS A/O, PLESANT AND COOPERATIVE. HE IS EATING AND DRINKING WELL. HE SWITCHED FROM IV PROTONIX TO ORAL, AND STARTED ON NS. HIS WAS AT BEDSIDE THIS SHIFT. HIS BED IS IN THE LOW POSITON AND CALL LIGHT IS WITHIN REACH. HE WORKED WITH PT THIS SHIFT AND TOLORATED WELL. HE WAS UP TO THE CHAIR THIS AFTERNOON.
[2022-10-28 19:51] VITALS: BP 118/68
[2022-10-29 04:00] VITALS: BP 111/67
--- NOTE | 2022-10-29 04:54 | NUR ---
shift summery PT RESTING IN BED, AT BEDSID RESTING IN RECLINERP PTS VERY CONCERNED ABOUT PT TAKING 81 MG OF ASPIRIN AND SAID PT HAD NOT BEEN TAKING IT TRYED TO SHOW HER THE MAR THAT PT HAD BEEN GVINEN IT FROM WEDNESDAY ON, PTS NAA VERY UPSET ABOUT PT GETTING NORVASC 2.5 MG AND METOPEROLOL 0.5 MG AGAIN TRYED TO SHOW HER PT HAD BEEN GETTING THESE MEDS FROM WEDNESDAY ON AND TOLD HER WHAT PTS BPS WERE NAD PUSES THAT THEY WERE ALL GOOD. THINKS THEY WERE ALL DC BUT ALOOWED PT TO TAKE MEDS ANY WAY. CALL LIGHT IN REACH. PT SLEPT BUT AWOKE WHEN IV BEEPING CHANGED BAG AND GAVE PT A JELO FOR A SNACK.
[2022-10-29 06:06] LABS: BASOPHILS ABSOLUTE AUTO 0.01 K/mm3 (0.00-0.23); BASOPHILS PERCENT AUTO 0 % (0-2); EOSINOPHILS ABSOLUTE AUTO 0.17 K/mm3 (0.00-0.68); EOSINOPHILS PERCENT AUTO 3 % (0-6); Hematocrit 26.3 % (37.0-53.0); Hemoglobin 8.9 g/dL (13.5-17.5); IMMATURE GRAN ABSOLUTE AUTO 0.01 K/mm3 (0.00-0.10); IMMATURE GRAN PERCENT AUTO 0 % (0-1); LYMPHOCYTES ABSOLUTE AUTO 1.07 K/mm3 (0.84-5.20); LYMPHOCYTES PERCENT AUTO 19 % (21-46); MONOCYTES ABSOLUTE AUTO 0.71 K/mm3 (0.16-1.47); MONOCYTES PERCENT AUTO 13 % (4-13); Mean Corpuscular HGB 29.5 pg (26.0-34.0); Mean Corpuscular HGB Conc 33.8 g/dL (31.5-36.5); Mean Corpuscular Volume 87 fL (80-100); Mean Platelet Volume 9.9 fL (9.1-12.4); NEUTROPHILS ABSOLUTE AUTO 3.64 K/mm3 (1.96-9.15); NEUTROPHILS PERCENT AUTO 65 % (41-73); Platelet Count 158 K/mm3 (150-400); RDW Coefficient Variation 15.6 % (11.7-14.2); RDW Standard Deviation 48.5 fL (35.1-46.3); Red Blood Cell Count 3.02 M/mm3 (4.30-5.90); White Blood Cell Count 5.61 K/mm3 (4.00-11.30)
[2022-10-29 06:33] LABS: Bun/Creatinine Ratio 23.8 (12.0-20.0); Calcium, Blood 7.8 mg/dL (8.5-10.1); Creatinine, Blood 0.76 mg/dL (0.60-1.20); Potassium, Blood 3.8 mmol/L (3.5-5.5)
[2022-10-29 07:25] VITALS: BP 122/66
[2022-10-29 15:57] VITALS: BP 134/77
--- NOTE | 2022-10-29 19:00 | NUR ---
SHIFT SUMMARY S/P GI BLEED, A/OX4, VSS, TOLEARING PO, DENIES PAIN, AT BEDSIDE ASSISTING WITH ADL CARE AND FEEDING, DENIES ANY EXTRA NEEDS DURING THIS SHIFT. CALL LIGHT IN REACH
[2022-10-29 19:22] VITALS: BP 126/69
--- NOTE | 2022-10-30 03:25 | NUR ---
MEMO MEHTA, PT RESTING IN BED, AT BEDSIDE. REFUSED ON OF PTS BP MED BUT ALLOWED OTHER MEDS TO BE GIVEN. PT RESTING IN BED, RESTING IN RECLINER BY PTS BEDSIDE. CALL LIGHT IN REACH.
[2022-10-30 04:34] VITALS: BP 125/82
[2022-10-30 04:47] LABS: BASOPHILS ABSOLUTE AUTO 0.01 K/mm3 (0.00-0.23); BASOPHILS PERCENT AUTO 0 % (0-2); EOSINOPHILS ABSOLUTE AUTO 0.12 K/mm3 (0.00-0.68); EOSINOPHILS PERCENT AUTO 2 % (0-6); Hematocrit 22.9 % (37.0-53.0); Hemoglobin 7.9 g/dL (13.5-17.5); IMMATURE GRAN ABSOLUTE AUTO 0.01 K/mm3 (0.00-0.10); IMMATURE GRAN PERCENT AUTO 0 % (0-1); LYMPHOCYTES ABSOLUTE AUTO 0.88 K/mm3 (0.84-5.20); LYMPHOCYTES PERCENT AUTO 18 % (21-46); MONOCYTES ABSOLUTE AUTO 0.66 K/mm3 (0.16-1.47); MONOCYTES PERCENT AUTO 13 % (4-13); Mean Corpuscular HGB 29.6 pg (26.0-34.0); Mean Corpuscular HGB Conc 34.5 g/dL (31.5-36.5); Mean Corpuscular Volume 86 fL (80-100); Mean Platelet Volume 9.8 fL (9.1-12.4); NEUTROPHILS ABSOLUTE AUTO 3.27 K/mm3 (1.96-9.15); NEUTROPHILS PERCENT AUTO 66 % (41-73); Platelet Count 149 K/mm3 (150-400); RDW Coefficient Variation 15.9 % (11.7-14.2); RDW Standard Deviation 49.2 fL (35.1-46.3); Red Blood Cell Count 2.67 M/mm3 (4.30-5.90); White Blood Cell Count 4.95 K/mm3 (4.00-11.30)
[2022-10-30 05:15] LABS: Albumin, Blood 2.6 g/dL (3.4-5.0); Albumin/Globulin Ratio 0.8 (0.8-1.8); Bilirubin, Total 1.2 mg/dL (0.1-1.0); Bun/Creatinine Ratio 20.6 (12.0-20.0); Calcium, Blood 7.6 mg/dL (8.5-10.1); Creatinine, Blood 0.68 mg/dL (0.60-1.20); Globulin, Blood 3.1 g/dL (2.2-4.0); Potassium, Blood 4.1 mmol/L (3.5-5.5); Total Protein, Blood 5.7 g/dL (6.4-8.2)
[2022-10-30 07:42] VITALS: BP 120/63
[2022-10-30 15:26] VITALS: BP 136/76
--- NOTE | 2022-10-30 18:00 | NUR ---
PT HAS TWO SKIN TEARS FROM FALL AT HOME. PLACED PETROLIUM DRESSING ON SKIN, NONADHERANT PAD PLACED NEXT, WRAPPED WITH KERLEX. PT STATES ARM IS TENDER WITH TOUCH BUT TOLERATED WELL.
--- NOTE | 2022-10-30 19:58 | NUR ---
SHIFT SUMMARY PT A&OX4 AND PLEASANT. AT BEDSIDE T/O DAY. NO ACUTE CHANGES. PT WORKED WITH PHYSICAL THERAPY AND OT. PT HAS BEEN AMBULATING TO BATHROOM WITH FWW AND 'S ASSISTANCE AND TOLERATING WELL. VSS. BED IN LOWEST POSITION AND CALL LIGHT IN REACH.
[2022-10-30 20:09] VITALS: BP 134/78
--- NOTE | 2022-10-31 03:44 | NUR ---
MEMO MEHTA. PT RESTING IN RECLINER, IN BED.PT HAD STATED THAT THE RECLINER WAS MORE COMFORTABLE THAN THE BED. SO THEY TRAIDED. PT AND SAYING THEY ARE HOPEFULL THAT THEY MIGHT GO HOME TODAY. PT APPEAR TO BE SLEEPING WELL AND APPEARS TO BE COMFORTABLE.
[2022-10-31 04:40] VITALS: BP 125/77
[2022-10-31 05:10] LABS: BASOPHILS ABSOLUTE AUTO 0.02 K/mm3 (0.00-0.23); BASOPHILS PERCENT AUTO 0 % (0-2); EOSINOPHILS ABSOLUTE AUTO 0.13 K/mm3 (0.00-0.68); EOSINOPHILS PERCENT AUTO 2 % (0-6); Hematocrit 26.1 % (37.0-53.0); Hemoglobin 8.9 g/dL (13.5-17.5); IMMATURE GRAN ABSOLUTE AUTO 0.02 K/mm3 (0.00-0.10); IMMATURE GRAN PERCENT AUTO 0 % (0-1); LYMPHOCYTES ABSOLUTE AUTO 1.39 K/mm3 (0.84-5.20); LYMPHOCYTES PERCENT AUTO 21 % (21-46); MONOCYTES ABSOLUTE AUTO 0.79 K/mm3 (0.16-1.47); MONOCYTES PERCENT AUTO 12 % (4-13); Mean Corpuscular HGB Conc 34.1 g/dL (31.5-36.5); Mean Corpuscular Volume 88 fL (80-100); Mean Platelet Volume 9.5 fL (9.1-12.4); NEUTROPHILS ABSOLUTE AUTO 4.14 K/mm3 (1.96-9.15); NEUTROPHILS PERCENT AUTO 64 % (41-73); Platelet Count 155 K/mm3 (150-400); RDW Coefficient Variation 16.4 % (11.7-14.2); RDW Standard Deviation 51.3 fL (35.1-46.3); Red Blood Cell Count 2.97 M/mm3 (4.30-5.90); White Blood Cell Count 6.49 K/mm3 (4.00-11.30)
[2022-10-31 05:29] LABS: Albumin, Blood 2.8 g/dL (3.4-5.0); Albumin/Globulin Ratio 0.9 (0.8-1.8); Bilirubin, Total 1.2 mg/dL (0.1-1.0); Bun/Creatinine Ratio 18.2 (12.0-20.0); Creatinine, Blood 0.82 mg/dL (0.60-1.20); Globulin, Blood 3.1 g/dL (2.2-4.0); Potassium, Blood 4.4 mmol/L (3.5-5.5); Total Protein, Blood 5.9 g/dL (6.4-8.2)
[2022-10-31 07:31] VITALS: BP 119/73
[2022-10-31 15:32] VITALS: BP 99/49
--- NOTE | 2022-10-31 16:54 | NUR ---
DAYSHIFT SUMARY No acute changes to patient status, patient worked with therapy today. No reports of GI bleeding this shift. Sodium level 126, continuing to give sodium tablets PO. BP soft, 1x bolus of 500ml ordered. Vitals stable. WIll continue plan of care.
[2022-10-31 19:53] VITALS: BP 116/60
[2022-11-01 04:30] LABS: BASOPHILS ABSOLUTE AUTO 0.03 K/mm3 (0.00-0.23); BASOPHILS PERCENT AUTO 1 % (0-2); EOSINOPHILS ABSOLUTE AUTO 0.13 K/mm3 (0.00-0.68); EOSINOPHILS PERCENT AUTO 2 % (0-6); Hematocrit 26.9 % (37.0-53.0); IMMATURE GRAN ABSOLUTE AUTO 0.03 K/mm3 (0.00-0.10); IMMATURE GRAN PERCENT AUTO 1 % (0-1); LYMPHOCYTES ABSOLUTE AUTO 1.35 K/mm3 (0.84-5.20); LYMPHOCYTES PERCENT AUTO 23 % (21-46); MONOCYTES ABSOLUTE AUTO 0.74 K/mm3 (0.16-1.47); MONOCYTES PERCENT AUTO 13 % (4-13); Mean Corpuscular HGB 29.4 pg (26.0-34.0); Mean Corpuscular HGB Conc 33.5 g/dL (31.5-36.5); Mean Corpuscular Volume 88 fL (80-100); Mean Platelet Volume 9.7 fL (9.1-12.4); NEUTROPHILS ABSOLUTE AUTO 3.63 K/mm3 (1.96-9.15); NEUTROPHILS PERCENT AUTO 62 % (41-73); Platelet Count 159 K/mm3 (150-400); RDW Coefficient Variation 16.7 % (11.7-14.2); Red Blood Cell Count 3.06 M/mm3 (4.30-5.90); White Blood Cell Count 5.91 K/mm3 (4.00-11.30)
[2022-11-01 04:48] LABS: Albumin, Blood 2.7 g/dL (3.4-5.0); Albumin/Globulin Ratio 0.8 (0.8-1.8); Bilirubin, Total 1.1 mg/dL (0.1-1.0); Calcium, Blood 7.9 mg/dL (8.5-10.1); Creatinine, Blood 0.83 mg/dL (0.60-1.20); Globulin, Blood 3.2 g/dL (2.2-4.0); Potassium, Blood 4.3 mmol/L (3.5-5.5); Total Protein, Blood 5.9 g/dL (6.4-8.2)
[2022-11-01 05:05] VITALS: BP 115/63
--- NOTE | 2022-11-01 05:10 | NUR ---
SHIFT SUMMARY NO ACUTE CHANGES TO REPORT OVERNIGHT, PT HAS RESTED IN RECLINER T/O SHIFT WITH AT BEDSIDE. SHE HAS ASSISTED HIM WITH ADLS T/O THE NIGHT. PT REPORTS THAT HE HAS NOT BEEN ABLE TO GET MUCH SLEEP. ASKED HIM IF HE WANTED ME TO NOTIFY DR MCCORMICK THAT SOMETHING COULD BE ORDERED FOR BEDTIME TO HELP HIM SLEEP. HE DECLINES TO TAKE ANYTHING FOR SLEEP. VITALS ARE STABLE, AND ASSESSMENT UNCHANGED. BED IN LOWEST POSITION, CALL LIGHT WITHIN REACH.
[2022-11-01 07:16] VITALS: BP 124/69
[2022-11-01] MEDS ORDERED: BASAGLAR K100 UNIT/1 SC (12:59)
[2022-11-01] MEDS ORDERED: SODCHL1 PO (12:59)
[2022-11-01] MEDS ORDERED: PANT40 PO (12:59)
[2022-11-01] MEDS ORDERED: BUSP10 PO (12:59)
--- NOTE | 2022-11-01 13:33 | NUR ---
DISCHARGE PT A&OX4 PRESENT TO PROVIDE PT TRANSPORT. MEDS FAXED, IV REMOVED. BILAT FEET 2 EDEMA- NOTIFIED PLAN TO FOLLOW UP OUT PT-COMPRESSION STOCKING
== END 2022-11-01 13:32 | disposition home health service (06) | DRG 377 ==
LOC: ER 11:26 → MEDS 13:25
PROVIDERS: Student in an Organized Health Care Education/Training Program; ADMIT Internal Medicine
DX: K92.1 Melena (principal); G93.41 Metabolic encephalopathy; C92.10 Chronic myeloid leukemia, BCR/ABL-positive, not having achieved remission; E22.2 Syndrome of inappropriate secretion of antidiuretic hormone; D62 Acute posthemorrhagic anemia; I13.0 Hypertensive heart and chronic kidney disease with heart failure and stage 1 through stage 4 chronic kidney disease, or unspecified chronic kidney disease; I50.22 Chronic systolic (congestive) heart failure; R64 Cachexia; Z66 Do not resuscitate; M79.89 Other specified soft tissue disorders; E11.22 Type 2 diabetes mellitus with diabetic chronic kidney disease; N18.2 Chronic kidney disease, stage 2 (mild); E78.5 Hyperlipidemia, unspecified; H54.61 Unqualified visual loss, right eye, normal vision left eye; E11.42 Type 2 diabetes mellitus with diabetic polyneuropathy; F41.8 Other specified anxiety disorders; E11.51 Type 2 diabetes mellitus with diabetic peripheral angiopathy without gangrene; G25.81 Restless legs syndrome; S41.112A Laceration without foreign body of left upper arm, initial encounter; W19.XXXA Unspecified fall, initial encounter; D63.1 Anemia in chronic kidney disease; E11.319 Type 2 diabetes mellitus with unspecified diabetic retinopathy without macular edema; Z91.81 History of falling; Z79.811 Long term (current) use of aromatase inhibitors; Z79.84 Long term (current) use of oral hypoglycemic drugs; Z79.82 Long term (current) use of aspirin; Z79.02 Long term (current) use of antithrombotics/antiplatelets; Z79.899 Other long term (current) drug therapy; Z98.1 Arthrodesis status; Z98.890 Other specified postprocedural states; Z95.828 Presence of other vascular implants and grafts; Z87.19 Personal history of other diseases of the digestive system; Z86.19 Personal history of other infectious and parasitic diseases; I25.2 Old myocardial infarction; Z87.01 Personal history of pneumonia (recurrent); Z87.440 Personal history of urinary (tract) infections; Z87.891 Personal history of nicotine dependence; Z87.81 Personal history of (healed) traumatic fracture; Z68.23 Body mass index [BMI] 23.0-23.9, adult; Z88.4 Allergy status to anesthetic agent
CPT/HCPCS: 36415; 71045; 80048; 80053; 82947; 83735; 83880; 83930; 83935; 84145; 84300; 85025; 85610; 85730; 86850; 86900; 86901; 93005; 93010; 93971; 96365; 96375; 97110; 97116; 97162; 97165; 97530; 97535; 99284-25; A9270; C9113; J1815; J3010; J7030

== ENCOUNTER → 2022-11-08 | Outpatient (CLI) | payer OTHER ==
[~2022-11-08] MED LIST changes: +ATOR40TA PO; +BASAGLAR K100 UNIT/1 SC; +BUSP10 PO; +METOPROLOL TART25 MG PO; +PANT40 PO; +PARO10 PO; +SODCHL1 PO
[2022-11-08 13:08] LABS: BASOPHILS ABSOLUTE AUTO 0.09 K/mm3 (0.00-0.23); BASOPHILS PERCENT AUTO 1 % (0-2); EOSINOPHILS ABSOLUTE AUTO 0.03 K/mm3 (0.00-0.68); EOSINOPHILS PERCENT AUTO 0 % (0-6); Hematocrit 31.2 % (37.0-53.0); Hemoglobin 10.4 g/dL (13.5-17.5); IMMATURE GRAN ABSOLUTE AUTO 0.04 K/mm3 (0.00-0.10); IMMATURE GRAN PERCENT AUTO 1 % (0-1); LYMPHOCYTES ABSOLUTE AUTO 1.22 K/mm3 (0.84-5.20); LYMPHOCYTES PERCENT AUTO 15 % (21-46); MONOCYTES ABSOLUTE AUTO 0.54 K/mm3 (0.16-1.47); MONOCYTES PERCENT AUTO 7 % (4-13); Mean Corpuscular HGB 29.8 pg (26.0-34.0); Mean Corpuscular HGB Conc 33.3 g/dL (31.5-36.5); Mean Corpuscular Volume 89 fL (80-100); Mean Platelet Volume 9.5 fL (9.1-12.4); NEUTROPHILS ABSOLUTE AUTO 6.31 K/mm3 (1.96-9.15); NEUTROPHILS PERCENT AUTO 77 % (41-73); Platelet Count 296 K/mm3 (150-400); Red Blood Cell Count 3.49 M/mm3 (4.30-5.90); White Blood Cell Count 8.23 K/mm3 (4.00-11.30)
[2022-11-08 13:23] LABS: Albumin, Blood 3.1 g/dL (3.4-5.0); Albumin/Globulin Ratio 0.9 (0.8-1.8); Bilirubin, Total 1.2 mg/dL (0.1-1.0); Bun/Creatinine Ratio 21.2 (12.0-20.0); Calcium, Blood 8.5 mg/dL (8.5-10.1); Creatinine, Blood 0.99 mg/dL (0.60-1.20); Globulin, Blood 3.3 g/dL (2.2-4.0); Potassium, Blood 4.9 mmol/L (3.5-5.5); Total Protein, Blood 6.4 g/dL (6.4-8.2)
== END ==
LOC: LAB SHORT 13:04 → LAB 13:04
PROVIDERS: Family Medicine
DX: D64.9 Anemia, unspecified (principal); E87.1 Hypo-osmolality and hyponatremia; R60.9 Edema, unspecified
CPT/HCPCS: 80053; 83880; 85025

== ENCOUNTER 2022-11-25 10:34 | Inpatient (IN) | payer OTHER ==
[~2022-11-25] VITALS: Ht 177.8 cm; Wt 82.3 kg
[2022-11-25 11:01] LABS: BASOPHILS PERCENT AUTO 1 % (0-2); EOSINOPHILS PERCENT AUTO 1 % (0-6); Hematocrit 37.2 % (37.0-53.0); Hemoglobin 12.3 g/dL (13.5-17.5); IMMATURE GRAN ABSOLUTE AUTO 0.06 K/mm3 (0.00-0.10); IMMATURE GRAN PERCENT AUTO 0 % (0-1); LYMPHOCYTES ABSOLUTE AUTO 1.61 K/mm3 (0.84-5.20); LYMPHOCYTES PERCENT AUTO 11 % (21-46); MONOCYTES ABSOLUTE AUTO 0.78 K/mm3 (0.16-1.47); MONOCYTES PERCENT AUTO 5 % (4-13); Mean Corpuscular HGB 27.5 pg (26.0-34.0); Mean Corpuscular HGB Conc 33.1 g/dL (31.5-36.5); Mean Corpuscular Volume 83 fL (80-100); Mean Platelet Volume 9.2 fL (9.1-12.4); NEUTROPHILS ABSOLUTE AUTO 12.15 K/mm3 (1.96-9.15); NEUTROPHILS PERCENT AUTO 82 % (41-73); Platelet Count 448 K/mm3 (150-400); RDW Coefficient Variation 16.2 % (11.7-14.2); RDW Standard Deviation 48.8 fL (35.1-46.3); Red Blood Cell Count 4.47 M/mm3 (4.30-5.90)
[2022-11-25 11:30] LABS: Calcium, Ionized (POC) 1.13 mmol/L (1.10-1.46); Chloride (POC) 88 mmol/L (98-108); Creatinine (POC) 1.1 mg/dL (0.8-1.3); Glucose (ISTAT POC) 171 mg/dL (70-99); Hemoglobin (POC) 13.9 g/dL (13.5-17.5); Potassium (POC) 4.7 mmol/L (3.5-5.5); Sodium (POC) 125 mmol/L (135-148); Total CO2 (POC) 26 mmol/L (21-32)
[2022-11-25 12:00] LABS: Albumin, Blood 3.3 g/dL (3.4-5.0); Albumin/Globulin Ratio 0.9 (0.8-1.8); Bilirubin, Total 1.2 mg/dL (0.1-1.0); Bun/Creatinine Ratio 32.1 (12.0-20.0); Calcium, Blood 8.9 mg/dL (8.5-10.1); Creatinine, Blood 1.06 mg/dL (0.60-1.20); Globulin, Blood 3.7 g/dL (2.2-4.0); Potassium, Blood 4.9 mmol/L (3.5-5.5)
[2022-11-25 13:31] LABS: Source, Urine Clean Catch
[2022-11-25 13:50] LABS: Appearance, Urine Hazy (Clear); Bilirubin, Urine Neg (Neg); Blood, Urine Neg (Neg); Color, Urine Yellow (P-Yellow); Glucose Qualitative, Urine Neg (Neg); Ketones, Urine Neg (Neg); Leukocyte Esterase, Urine 1+ (Neg); Nitrite, Urine Neg (Neg); Protein, Urine 3+ (Neg); Urobilinogen, Urine NORM (Normal)
[2022-11-25] MEDS ORDERED: LASIX20 M2 PO (14:00)
[2022-11-25] MEDS ORDERED: TIMDOROPSO RIGHTEYE (14:03)
[2022-11-25] MEDS ORDERED: HYDCHL25 PO (14:03)
[2022-11-25 14:07] LABS: Amorphous Light (0-Heavy); Bacteria Mod /hpf; Hyaline Casts 0-2 /lpf (0-2); Red Blood Cells, Urine Not Seen /hpf (0-2); Squamous Epithelial Cells Not Seen /hpf (Few)
[2022-11-25 15:34] VITALS: BP 122/79
[2022-11-25 15:47] LABS: Adenovirus Not Detected (NOT DETECT); Bordetella pertussis Not Detected (NOT DETECT); Chlamydophila pneumoniae Not Detected (NOT DETECT); Coronavirus 229E Not Detected (NOT DETECT); Coronavirus HKU1 Not Detected (NOT DETECT); Coronavirus NL63 Not Detected (NOT DETECT); Coronavirus OC43 Not Detected (NOT DETECT); Human Metapneumovirus Not Detected (NOT DETECT); Human Rhinovirus/Enterovirus Not Detected (NOT DETECT); Influenza A/2009-H1 Not Detected (NOT DETECT); Influenza A/H1 Not Detected (NOT DETECT); Influenza A/H3 Not Detected (NOT DETECT); Influenza B Not Detected (NOT DETECT); Mycoplasma pneumoniae Not Detected (NOT DETECT); Parainfluenza Virus 1 Not Detected (NOT DETECT); Parainfluenza Virus 2 Not Detected (NOT DETECT); Parainfluenza Virus 3 Not Detected (NOT DETECT); Parainfluenza Virus 4 Not Detected (NOT DETECT); Respiratory Syncytial Virus Not Detected (NOT DETECT); SARS-Cov-2 (COVID-19), BioFire Not Detected (NOT DETECT)
--- NOTE | 2022-11-25 17:05 | NUR ---
Received report from Primary RN Chloe Pt and family would benefit from Palliative Care visit. Pt just admitted to the hospital with significant medical history. Brief supportive visit to establish rapport. Pt resting in bed and speech is slurred. Pt reports being sleepy and is agreeable for this RN to speak with family at bedside. Offered brief visit with family members Sin and Lesly. Family agreeable for continued PC visits. Family reports spouse is attempting to set up caregiver support. Palliative Care will remain available
--- NOTE | 2022-11-25 17:23 | NUR ---
SHIFT SUMMARY/ADMIT NOTE MR RG WAS ADMITTED FROM THE ER AT 1515HRS ACCOMPANIED BY SUPPORTIVE GRANDDAUGHTER/FAMILY. PT HAS MUMBLED SPEECH THAT IS OFTEN DIFFICULT TO UNDERSTAND. HE IS ABLE TO TELL ME HIS NAME, THAT HE IS IN HOSPITAL IN [place] IN 2022. HE SEEMS CONFUSED AND DISORIENTATED BY SOME OF HIS REMARKS AND CONVERSATION. HIS GRANDDAUGHTER SAID THAT HE HAS RECENTLY BEEN HALLUCINATING AT HOME, SEEING PEOPLE WHO ARE NOT PRESENT. HE DOES GET A LITTLE AGGITATED, UNDRESSING HIMSELF, TURNING IN BED, PUTTING HIS LEGS OUT OF BED. SIDE RAILS UP X3. DISCUSSED WITH FAMILY POSSIBLE USE OF A CAMERA IN THE ROOM, THEY SAID THAT THERE WILL ALWAYS BE A FAMILY MEMBER IN THE ROOM SO CAMERA WILL BE REEVALUATED LATER. PUPILS UNEQUAL. 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 R FACIAL DROOP. EQUAL VERY WEAK HAND CURVE SAW OPERATOR, ABLE TO LIFT BOTH ARMS OFF THE BED AT EQUAL HEIGHT. EQUAL VERY WEAK FOOT PUSH AND PULL. PT SAID HE HAS N/T BOTH FEET AND HX NEUROPATHY. ADMITTED ON 3L O2 NC, INSP/EXP WHEEZES HEARD L LUNG ON ADMISSION. C/O PAIN ON URINATION. VOIDING SMALL VOLUMES AT A TIME. BLOODY DRAINAGE FROM PENIS. SAID HE HAD BLACK STOOL THIS AM, LARGE FORMED STOOL DID NOT LOOK BLOODY BUT SAMPLE FOR GUIAC SENT TO LAB. MULTIPLE BRUISES ON SKIN, PRESSURE SORE ON COCCYX, SKIN TEAR LEFT WRIST. PT LIVES WITH HIS WHO HAS BEEN HELPING WITH ADLS. NO HOME HEALTH. BED LOW. CALL AMNA IN REACH. BED ALARM ON.
[2022-11-25 18:43] VITALS: BP 130/85
--- NOTE | 2022-11-25 18:50 | NUR ---
RN NOTE MR RG WAS HAVING DIFFICULTY URINATING AND VERY SMALL VOLUMES OF URINE EACH TIME. SMALL BLOOD FROM PENIS. BLADDER SCAN [id number]. DR VIDAL CALLED AND TINSLEY CATHETER ORDERED. 14FR PLACED PT WAS BLEEDING AND C/O PAIN AT PENIS. IT WENT IN EASILY AND AFTER INITIAL HEMATURIA THE URINE IS DRAINING CLEAR YELLOW. UA SENT PER PROTOCOL. INFORMED DR VIDAL THAT PT HAS BEEN GETTING AGGITATED AND MORE CONFUSED. FAMILY REMAIN AT BEDSIDE. FAMILY VERBALISED UNDERSTANDING OF IGNITION SOURCES AND RISK OF INJURY WILE OXYGEN IS IN USE. PT AND FAMILY DENY BEING SMOKERS OR HAVING ANY IGNITION SOURCE. GIVEN WRITTEN MATERIAL. BED LOW, CALL LIGHT IN REACH.
[2022-11-25 18:52] LABS: Source, Urine Foley catheter
[2022-11-25 18:57] LABS: Appearance, Urine Cloudy (Clear); Bilirubin, Urine Neg (Neg); Blood, Urine 5+ (Neg); Glucose Qualitative, Urine Neg (Neg); Ketones, Urine Neg (Neg); Leukocyte Esterase, Urine 1+ (Neg); Nitrite, Urine Neg (Neg); Protein, Urine 3+ (Neg); Specific Gravity, Urine 1.015 (1.003-1.022); Urobilinogen, Urine NORM (Normal)
[2022-11-25 19:03] LABS: Color, Urine Amber (P-Yellow)
[2022-11-25 19:05] LABS: Bacteria Mod /hpf; Hyaline Casts 0-2 /lpf (0-2); Red Blood Cells, Urine TNTC /hpf (0-2); Squamous Epithelial Cells Not Seen /hpf (Few)
[2022-11-25 19:52] VITALS: BP 130/78
[2022-11-26 03:01] VITALS: BP 120/83
[2022-11-26 05:48] LABS: BASOPHILS ABSOLUTE AUTO 0.15 K/mm3 (0.00-0.23); BASOPHILS PERCENT AUTO 1 % (0-2); EOSINOPHILS ABSOLUTE AUTO 0.04 K/mm3 (0.00-0.68); EOSINOPHILS PERCENT AUTO 0 % (0-6); Hematocrit 36.7 % (37.0-53.0); Hemoglobin 12.3 g/dL (13.5-17.5); IMMATURE GRAN PERCENT AUTO 1 % (0-1); LYMPHOCYTES ABSOLUTE AUTO 1.98 K/mm3 (0.84-5.20); LYMPHOCYTES PERCENT AUTO 12 % (21-46); MONOCYTES ABSOLUTE AUTO 1.07 K/mm3 (0.16-1.47); MONOCYTES PERCENT AUTO 7 % (4-13); Mean Corpuscular HGB 27.3 pg (26.0-34.0); Mean Corpuscular HGB Conc 33.5 g/dL (31.5-36.5); Mean Corpuscular Volume 81 fL (80-100); Mean Platelet Volume 9.6 fL (9.1-12.4); NEUTROPHILS ABSOLUTE AUTO 12.68 K/mm3 (1.96-9.15); NEUTROPHILS PERCENT AUTO 79 % (41-73); Platelet Count 332 K/mm3 (150-400); RDW Standard Deviation 47.2 fL (35.1-46.3); Red Blood Cell Count 4.51 M/mm3 (4.30-5.90); White Blood Cell Count 16.12 K/mm3 (4.00-11.30)
[2022-11-26 06:36] LABS: Albumin, Blood 3.1 g/dL (3.4-5.0); Albumin/Globulin Ratio 0.9 (0.8-1.8); Bun/Creatinine Ratio 30.7 (12.0-20.0); Calcium, Blood 8.7 mg/dL (8.5-10.1); Creatinine, Blood 0.94 mg/dL (0.60-1.20); Globulin, Blood 3.5 g/dL (2.2-4.0); Potassium, Blood 4.1 mmol/L (3.5-5.5); Total Protein, Blood 6.6 g/dL (6.4-8.2)
[2022-11-26 07:14] VITALS: BP 115/73
--- NOTE | 2022-11-26 07:51 | NUR ---
SUMMARY PT CONTINUES TO HAVE OCCASIONAL EPISODES OF AGITATION/CONFUSION, ATTEMPTING TO GET OOB. PT STATED HE FELT TRAPPED AND WANTED TO PLACE HIS FEET ON THE FLOOR, PT WAS ALLOWED TO DANGLE FOR 15 MINUTES, HIS WAS AT HIS SIDE, PT WAS ALERT AT THE TIME AND COOPERATIVE WITH CARE. PT WAS ALERT MAJORITY OF THE NIGHT, GRASPS EQUAL, SPEECH REMAINS MUMBLED, VSS, O2 VIA NC, TINSLEY CATH WAS REPLACED DUE TO CLOTS BLOCKING FLOW, NO BLOOD NOTED IN THE NEW TINSLEY, PATENT, PLACED BELOW THE BLADDER, Q2 TURNS, IS AT THE BEDSIDE AND WILL ASSIST W/CARE, IGNITION & FIRE SAFETY EDUCATION PROVIDED TO THEM BOTH, REPORT WAS GIVEN TO DAY RN, CALL LIGHT IN REACH
[2022-11-26 10:53] LABS: Stool Occult Blood Guaiac 1 Neg (Neg)
--- NOTE | 2022-11-26 11:09 | NUR ---
"Spiritual Care Visit | Pt. Request Pt. is getting an ultrasound when this embryology teacher visits. Secure Mentem welcomed me to stay as she was finishing up. Pt. is pleasant and reaches for my hand. SHEILA is present. Facilitated a life review and considered matters of doris and belief. Pt. displays evidence of engagement and awareness, though also displays ocassional somnolence. Paryed with Pt. Pt. verbalized gratitude for the spiritual care visit and welcomed this embryology teacher to return."
--- NOTE | 2022-11-26 14:11 | NUR ---
TELE NOTIFIED OF SINUS ARRYTHMIA ON CURRENT TELE STRIP. DR. ROMERO NOTIFIED. ORDERS RECIEVED FOR EKG. PT ASLEEP IN BED, DENIES CP OR DISCOMFORT.
--- NOTE | 2022-11-26 14:15 | NUR ---
Pt resting in bed upon arrival. Pt more awake this today but still appear tired. OT Mulugeta in to work with Pt. Pt's spouse Sherrell at bedside. Offered therapeutic listening and answered questions regarding plan of care. Listened as Sherrell reports Pt's care needs are increasing and Pt is awake most of the night. She reports plan to higher caregivers to assist. Engaged in therapeutic conversation regarding advanced care planning. Educated on disease process including trajectory and the importance of planning for the future. Discussed the potential need to consider hospice at somepoint in the future. Continued therapeutic listening. Discussed completing POLST during Pt's hospital stay. Pt is intermittently hallucinating during visit as he reports people standing next to him that are not there. Ended visit to allow Spouse to visit with Pt. Spouse expresses appreciation. Palliative Care will remain available
[2022-11-26 14:29] VITALS: BP 114/70
--- NOTE | 2022-11-26 19:27 | NUR ---
SHIFT SUMMARY ALERT WHEN AWAKE, TAKES FREQUENT NAPS. OCCASIONALLY FORGETFUL, CONFUSED, AND IMPULSIVE. SPOUSE PRESENT AT BEDSIDE AND ENGAGED AND SUPPORTIVE. NEURO CHECKS ARE BASELINE. EQUAL STRONG BILAT SWITCHBOARD MECHANIC, BLE WEAKNESS AND TREMORS, SOME MUMBLED AND SLURRED SPEECH IS BASELINE. HEAD CT IS NEGATIVE FOR ACUTE PROCESS. EKG THIS SHIFT UNCHANGED FROM PRIOR. ECHO DONE, EF 30%. DR ROMERO TO DISCUSS RESULTS WITH PATIENT AND SPOUSE IN AM. AWAITING HEAD MRI, IMAGING DEPT IS FOLLOWING UP THE STATUS OF AN EYE IMPLANT WITH AN UNKNOWN DATE OF PLACEMENT. MRI PENDING UNTIL STATUS OF EYE IMPLANT IS KNOWN. PATIENT'S SKIN IS POOR CONDITION, NUMEROUS SCABS FROM PICKING, SEVERAL IS SCANT BLOOD THIS SHIFT. PRESSURE SORE TO COCCYX, MEPILEX IN PLACE. TINSLEY PATENT AND DRAINING CLEAR YELOW URINE. NO CLOTS, DENIES BLADDER PAIN. TOLERATING ADA DIET AND LIQUIDS. HAS CLAUSTROPHOBIA AND CANNOT LAYING FLAT. CAN PANIC AND ATTEMP TO GET UP TO EDGE OF BED WITHOUT CALLING. BED ALARM ON, HOB ELEVATED TO PATIENT'S COMFORT, DOOR OPEN. SUPPLEMENTAL O2 VIA NC PRN. REPORT GIVEN TO FOOD PREPARER RN.
[2022-11-26 19:54] VITALS: BP 119/69
[2022-11-27 04:25] VITALS: BP 120/81
--- NOTE | 2022-11-27 04:49 | NUR ---
SHIFT SUMMARY PT IS A&03 BOUTS OF CONFUSION AND AGITATION OVERNIGHT, 2L NC, 1-2 PERSON ASSIST TO BSC, VSS, NO COMPLAINTS OF PAIN OR DISCOMFORT OVERNIGHT, AT BEDSIDE THROUGHOUT SHIFT, FIRE IGNITION ED PROVIDED CONTINUE POC
[2022-11-27 05:46] LABS: BASOPHILS ABSOLUTE AUTO 0.21 K/mm3 (0.00-0.23); BASOPHILS PERCENT AUTO 1 % (0-2); EOSINOPHILS ABSOLUTE AUTO 0.13 K/mm3 (0.00-0.68); EOSINOPHILS PERCENT AUTO 1 % (0-6); Hematocrit 34.7 % (37.0-53.0); Hemoglobin 11.4 g/dL (13.5-17.5); IMMATURE GRAN ABSOLUTE AUTO 0.08 K/mm3 (0.00-0.10); IMMATURE GRAN PERCENT AUTO 1 % (0-1); LYMPHOCYTES ABSOLUTE AUTO 1.85 K/mm3 (0.84-5.20); LYMPHOCYTES PERCENT AUTO 12 % (21-46); MONOCYTES ABSOLUTE AUTO 0.97 K/mm3 (0.16-1.47); MONOCYTES PERCENT AUTO 7 % (4-13); Mean Corpuscular HGB Conc 32.9 g/dL (31.5-36.5); Mean Corpuscular Volume 82 fL (80-100); Mean Platelet Volume 9.6 fL (9.1-12.4); NEUTROPHILS ABSOLUTE AUTO 11.73 K/mm3 (1.96-9.15); NEUTROPHILS PERCENT AUTO 78 % (41-73); Platelet Count 397 K/mm3 (150-400); RDW Coefficient Variation 15.9 % (11.7-14.2); RDW Standard Deviation 47.7 fL (35.1-46.3); Red Blood Cell Count 4.22 M/mm3 (4.30-5.90); White Blood Cell Count 14.97 K/mm3 (4.00-11.30)
[2022-11-27 06:50] LABS: Bun/Creatinine Ratio 27.9 (12.0-20.0); Calcium, Blood 8.6 mg/dL (8.5-10.1); Creatinine, Blood 0.93 mg/dL (0.60-1.20); Potassium, Blood 3.4 mmol/L (3.5-5.5)
[2022-11-27 07:04] VITALS: BP 117/66
--- NOTE | 2022-11-27 15:38 | NUR ---
Pt resting in bed upon arrival. Pt's spouse at bedside. generator operator straight bevel gear just finished IV start. Engaged in therapeutic conversation regarding goals of care including maintaining current plan of care and the option for hospice. Educated on hospice philosophy with V/U made by Pt and spouse. Pt expressing goal is hospice with spouse in agreement. Discussed hospice agencies to choose from and provided brochures. Spouse completed POLST for Pt and Pt signs POLST. Spouse will discuss further with Pt the option for comfort measures only until D/C home or continued plan of care. Continued therapeutic visit. Spoke with Primary RN Blanca and RN Rudolph Askew. Discussed case and Pt's plan for hospice. Spoke with Dr Gutierres and relayed wishes. Plan: Obtain copy of POLST upon physician signature for medical records. Pt and spouse will consider options for hospice agencies. Palliative Care will remain available
[2022-11-27 15:43] VITALS: BP 119/83
--- NOTE | 2022-11-27 17:30 | NUR ---
Case Conference Note Received voicemail from Pt's daughter Sinan Rios reporting she is assisting family by coordinating things. She reported family have chosen [facility]. Called and spoke with [facility] and they report they can admit Pt onto services on Wednesday. She reports if Pt is wanting to D/C home sooner then call hospice and they can have equipment delivered this weekend with plan to still be admitted on Wednesday. [facility] also reports speaking with family. Received call from Pt's spouse Sherrell. Discussed options of D/C home tomorrow with [facility] admitting on Wednesday or waiting until Wednesday to D/C from hospital. Sherrell also confirms daughter Sinan is assisting with coordination. Called Pt's daughter Sinan and relayed information. Sinan reports family will discuss further and let Dr Gutierres know tomorrow of plan. Spoke with Dr Gutierres and relayed information. Dr Gutierres is in agreement and if family elects weekend D/C he will send Pt home with oral lasix. Dr Gutierres will need to write or sign hospice orders. Pt will need hospital bed, oxygen, bedside table, and bedside commode. Pt will need to go home with [place] Catheter in place. Please call [facility] early in the day in order to arrange equipment delivery if he D/C this weekend. Daughter Sinan Rios [phone] Palliative Care will remain available.
--- NOTE | 2022-11-27 18:00 | NUR ---
IV AT R FOREARM INFILTRATED. PT AND PT REFUSED NEW IV, UNABLE TO GIVE IV LASIX AT THIS TIME. THIS RN PAGED . AWAITING RETURN CALL.
[2022-11-27 19:41] VITALS: BP 115/67
--- NOTE | 2022-11-27 22:07 | NUR ---
ADMISSION INFORMATION SENT TO [facility] SURE FOR VIDEO MONITORING OF PATIENT WHO IS IN ROOM 326. AWAITING VERIFICATION AND INSTRUCTIONS
--- NOTE | 2022-11-28 04:48 | NUR ---
SHIFT SUMMARY PT IS A&O2-3 CONFUSION AND AGITATION THIS SHIFT, PT WAS MOVED TO SPECAIL CARE UNIT AROUND 2100 FOR IMPULSIVENESS AND BEING UNCOOPERATIVE WITH CARE, OF PATIENT WAS NOT PLEASED THERFORE PT WAS MOVED BACK TO 326 TO BE PLACED ON CAMERA WITH AT BEDSIDE THROUGHOUT NIGHT. NO COMPLAINTS OF PAIN OR DISCOMFORT THIS SHIFT, FIRE IGNITION SAFETY EDUCATION PROVIDED CONTINUE POC
[2022-11-28 07:33] VITALS: BP 146/73
--- NOTE | 2022-11-28 07:33 | NUR ---
ASSUMED CARE: PT RESTING IN BED DURING BEDSIDE REPORT. IN RECLINER AT BEDSIDE. HOT PACKER IN ROOM AT THIS TIME.
--- NOTE | 2022-11-28 10:46 | NUR ---
MEDICAL SCHEDULER CAME AROUND AND STATED SHE IS REVIEWING PT'S CHART IN ORDER TO GET HOSPICE ARRANGEMENTS MADE. FAMILY AWARE THAT MEDICAL SCHEDULER IS WORKING ON THIS.
--- NOTE | 2022-11-28 11:35 | NUR ---
DR ROMERO AT BEDSIDE DISCUSSING PLANS FOR DC HOME WITH HOSPICE WITH PT AND .
--- NOTE | 2022-11-28 11:36 | NUR ---
DR ROMERO MADE AWARE OF PT'S LOSS OF IV AND THAT PT DID NOT GET IV ABX. STATES NOT NEEDED AT THIS TIME.
--- NOTE | 2022-11-28 11:46 | NUR ---
PT'S CONFIRMED THAT SHE AND PT WANT TO BE DISCHARGED TODAY EVEN IF EQUIPMENT AND HOSPICE ARE NOT AVAILABLE RIGHT AWAY. AWAITING CALL BACK FROM CARE MANAGEMENT TO RELAY THE MESSAGE TO THEM.
--- NOTE | 2022-11-28 11:56 | NUR ---
CARE MANAGEMENT AWARE THAT PT WISHES TO GO HOME TODAY AND IS OK WITH EQUIPMENT AND HOSPICE COMING TO THEM IN A FEW DAYS.
[2022-11-28] MEDS ORDERED: BUME1 PO (12:41)
--- NOTE | 2022-11-28 13:52 | NUR ---
DISCHARGE INSTRUCTIONS DISCUSSED WITH PT AND . INSTRUCTED ON [employer] CARE AND HOW TO SWITCH LEG BAG VS REGULAR BAG. HEEL ATTACHER WOOD PROVIDED PT WITH PORTABLE BIOX AND HOSPICE'S NUMBER IF ANY ISSUES ARISE BETWEEN NOW AND TIME OF FIRST VISIT. ESCORTED OUT VIA WHEEL CHAIR, FAMILY ASSISTED IN GETTING PT INTO CAR AND CARRYING POSSESSIONS OUT.
== END 2022-11-28 13:32 | disposition hospice, home (50) | DRG 64 ==
LOC: ER 10:34 → MEDS 13:07
PROVIDERS: Internal Medicine; Physician Assistant; Student in an Organized Health Care Education/Training Program; ADMIT Internal Medicine
PROC: 0T9B70Z Drainage of Bladder with Drainage Device, Via Natural or Artificial Opening (ICD-10-PCS; principal; 2022-11-25)
DX: I63.9 Cerebral infarction, unspecified (principal); I50.43 Acute on chronic combined systolic (congestive) and diastolic (congestive) heart failure; J96.01 Acute respiratory failure with hypoxia; I13.0 Hypertensive heart and chronic kidney disease with heart failure and stage 1 through stage 4 chronic kidney disease, or unspecified chronic kidney disease; N39.0 Urinary tract infection, site not specified; E87.20 Acidosis, unspecified; E87.1 Hypo-osmolality and hyponatremia; C92.10 Chronic myeloid leukemia, BCR/ABL-positive, not having achieved remission; D84.9 Immunodeficiency, unspecified; D63.1 Anemia in chronic kidney disease; Z51.5 Encounter for palliative care; Z66 Do not resuscitate; G25.81 Restless legs syndrome; E11.22 Type 2 diabetes mellitus with diabetic chronic kidney disease; K21.9 Gastro-esophageal reflux disease without esophagitis; E78.5 Hyperlipidemia, unspecified; I25.10 Atherosclerotic heart disease of native coronary artery without angina pectoris; F41.9 Anxiety disorder, unspecified; E53.8 Deficiency of other specified B group vitamins; F32.A Depression, unspecified; R74.01 Elevation of levels of liver transaminase levels; R29.810 Facial weakness; R29.702 NIHSS score 2; Z20.822 Contact with and (suspected) exposure to COVID-19; E11.51 Type 2 diabetes mellitus with diabetic peripheral angiopathy without gangrene; E11.42 Type 2 diabetes mellitus with diabetic polyneuropathy; Z79.84 Long term (current) use of oral hypoglycemic drugs; Z79.899 Other long term (current) drug therapy; Z79.4 Long term (current) use of insulin; Z95.820 Peripheral vascular angioplasty status with implants and grafts; Z98.1 Arthrodesis status; Z98.890 Other specified postprocedural states; Z86.19 Personal history of other infectious and parasitic diseases; Z88.4 Allergy status to anesthetic agent
CPT/HCPCS: 0202U; 36415; 51701; 70450; 71045; 80047; 80048; 80053; 81001; 82272; 82947; 83605; 83735; 83880; 84145; 85014; 85025; 87040; 87086; 92610; 93005; 93010; 93306; 93880; 94760; 96365; 96375; 97110; 97116; 97162; 97166; 97530; 99285-25; A9270; C9113; J0696; J1644; J1815; J1940; J2543; J7050